=== PATIENT | male | born 2005 | race African-American/Black ===

== ENCOUNTER 2024-02-16 11:33 | Emergency (ER) | payer MEDICAID ==
[~2024-02-16] VITALS: Ht 177.8 cm; Wt 10.9 kg
[2024-02-16 11:56] VITALS: TEMP 98.4
[2024-02-16] MEDS: PERTUSS(ACELL),DIPH,TET/PF 0.5 ML SYRINGE [ADULT] IM. ONE (12:28)
[2024-02-16 13:26] VITALS: BP 124/63; PULSE 91; RESP 16; O2SAT 98
== END 2024-02-16 13:32 | disposition home or self-care (01) ==
LOC: EMS 11:38
DX: S00.212A Abrasion of left eyelid and periocular area, initial encounter (principal); S09.90XA Unspecified injury of head, initial encounter; X58.XXXA Exposure to other specified factors, initial encounter; Y93.89 Activity, other specified; Y92.89 Other specified places as the place of occurrence of the external cause; Y99.8 Other external cause status
CPT/HCPCS: 90471; 90715; 99283; 99284